=== PATIENT | male | born 2000 ===

== ENCOUNTER 2024-03-07 03:05 | Emergency (ER) | payer BC ==
[2024-03-07] MEDS: Ondansetron 4 MG/2 ML SDV IVPUSH ONE (03:11)
[2024-03-07] MEDS: Ketorolac 30 MG/ML SDV IVPUSH ONE (03:12)
[2024-03-07 03:39] LABS: BASOPHILS ABSOLUTE AUTO 0.02 K/uL (0.00-0.20); BASOPHILS PERCENT AUTO 0.2 % (0.0-2.0); EOSINOPHILS ABSOLUTE AUTO 0.02 K/uL (0.00-0.50); EOSINOPHILS PERCENT AUTO 0.2 % (0.0-5.0); HEMATOCRIT 50.4 % (39.0-49.0); HEMOGLOBIN 17.1 g/dL (13.1-16.8); IMMATURE GRAN ABSOLUTE AUTO 0.02 10^3/uL (0.00-0.04); IMMATURE GRAN PERCENT AUTO 0.2 % (0.0-0.4); LYMPHOCYTES PERCENT AUTO 4.9 % (10.0-50.0); MEAN CORPUSCULAR HEMOGLOBIN 29.5 pg (28.2-33.3); MEAN CORPUSCULAR HGB CONC 33.9 g/dL (31.7-36.0); MEAN CORPUSCULAR VOLUME 86.9 fL (84.0-98.0); MONOCYTES PERCENT AUTO 5.7 % (2.0-14.0); NEUTROPHILS PERCENT AUTO 88.8 % (45.0-80.0); PLATELET COUNT,PLT 226 K/uL (150-350); RED CELL DISTRIBUTION WIDTH 12.3 % (11.2-14.1); WHITE BLOOD CELL COUNT,WBC 12.4 K/uL (4.0-10.2)
[2024-03-07 03:50] LABS: ALANINE AMINOTRANSFERASE,ALT 26 U/L (12-78); ALBUMIN 4.6 g/dL (3.4-5.0); ALKALINE PHOSPHATASE 63 IU/L (46-116); ANION GAP 12.2 meq/L (7-15); ASPARTATE AMNIOTRANSFERASE,AST 18 U/L (15-37); BILIRUBIN TOTAL 0.8 mg/dL (0.2-1.0); BLOOD UREA NITROGEN,BUN 14 mg/dL (7-18); CARBON DIOXIDE,CO2 25.8 mmol/L (21.0-32.0); CHLORIDE,CL 104 mmol/L (98-107); CREATININE 1.05 mg/dL (0.51-1.17); GLUCOSE RANDOM 109 mg/dL (70-99); POTASSIUM,K 4.3 mmol/L (3.5-5.1); PROTEIN TOTAL,TP 7.7 g/dL (6.4-8.2); SODIUM,NA 142 mmol/L (136-145)
[2024-03-07 03:54] LABS: ESTIMATED GFR 100 mL/min (>=60)
[2024-03-07] MEDS: Pantoprazole 40 MG Tab.CR PO ONE (04:24)
[2024-03-07] MEDS: Dicyclomine 20 MG Tab PO ONE (04:24)
[2024-03-07] MEDS: Sucralfate 1 GM Tab PO ONE (04:24)
[2024-03-07] MEDS: Take Home: Ondansetron 4 MG Tab.DIS, 5 Tab Pack PO ONE (04:24)
[2024-03-07] MEDS: Take Home: Ketorolac 10 MG Tab, 4 Tab Pack PO ONE (04:25)
== END 2024-03-07 04:45 | disposition home or self-care (01) ==
LOC: LL.ED 03:05
DX: K52.9 Noninfective gastroenteritis and colitis, unspecified (principal); Z91.030 Bee allergy status
CPT/HCPCS: 36415; 74019; 80053; 83735; 85025; 96374; 96375; 99284; 99284-25; A9270-GY; J1885; J2405; Q0162